=== PATIENT | male | born 1970 | race Caucasian/White ===

== ENCOUNTER → 2016-08-19 | Outpatient (CLI) | payer OTHER | END | disposition home or self-care (01) | LOC: CARD 08-18 08:30 → US 08-18 09:30 | DX: R20.2 Paresthesia of skin (principal) ==

== ENCOUNTER → 2018-10-02 | Outpatient (CLI) | payer OTHER ==
[2018-10-02 14:18] LABS: BODY FLUID WBC 22200 /uL
[2018-10-02 14:24] LABS: BF LYMPHOCYTES 1 %; BF MONOCYTES 2 %; BF NEUTROPHILS 97 %
[2018-10-03 15:05] LABS: ACID FAST SPEC PROCESSING Concentration (.)
[2018-11-15 08:10] LABS: ACID FAST CULTURE Negative (.)
== END | disposition home or self-care (01) ==
LOC: LAB 11:38
PROVIDERS: Orthopaedic Surgery
DX: M25.472 Effusion, left ankle (principal)

== ENCOUNTER 2020-12-08 10:27 | Emergency (ER) | payer OTHER ==
[~2020-12-08] VITALS: Ht 182.8 cm; Wt 131.5 kg
[2020-12-08] MEDS ORDERED: MEDROL DOSEPAK4 MG PO (11:14)
[2020-12-08] MEDS ORDERED: COLCHICINE0.6 M1 PO (12:48)
== END 2020-12-08 11:15 | disposition home or self-care (01) ==
LOC: ED 10:27
DX: M10.9 Gout, unspecified (principal)

== ENCOUNTER 2022-03-20 19:52 | Emergency (ER) | payer BC ==
[~2022-03-20 19:52] MED LIST: COLCHICINE0.6 M1 PO; MEDROL DOSEPAK4 MG PO
== END 2022-03-20 20:10 | disposition left against medical advice (07) ==
LOC: ED 19:52
DX: M79.606 Pain in leg, unspecified (principal); Z53.21 Procedure and treatment not carried out due to patient leaving prior to being seen by health care provider